=== PATIENT | female | born 1945 | race African-American/Black ===

== ENCOUNTER → 2017-01-13 | Outpatient (CLI) | payer OTHER ==
[~2017-01-13] MED LIST: ACCU-CHEK SMAR1 EACH MC; ACETAMINOPHEN325 M1 PO; ADVAIR HFA 230M12 GM INH; ALLEGRA ALLERGY60 MG PO; ALPRAZOLAM 0.0.25 M1 PO; AMBIEN 5 MG TABL5 M1 PO; AMBIEN CR12.5 MG PO; AMLODIPINE BESY10 MG PO; AMOXICILLIN 50500 M1 PO; ANTABUSE250 M1 PO; APAP650 PO; AZOR 10-40 MG1 EACH PO; BAYER CHEWABLE81 MG PO; BENADRYL25 MG PO; BENICAR40 MG PO; BIOTIN5 MG PO; BREO ELLIPTA 21 EACH IH; BYSTOLIC 5 MG5 M1 PO; CALCIUM 500 +1 EAC5 PO; CAMPRAL 333 MG333 M1 PO; CARDIZEM CD240 MG PO; CARVEDILOL12.5 MG PO; CEFTIN 250 MG250 MG PO; CENTRUM SILVER1 EAC4 PO; CEPHALEXIN 500500 M1 PO; CHLORTHALIDONE25 MG PO; CITRACAL + D C1 EACH PO; CLONIDINE0.1 PO; COLACE100 MG PO; DEMADEX10 MG PO; DILTIAZEM 24HR240 MG PO; DIOVAN160 MG PO; DIPHENHYDRAMINE25 M3 PO; DULERA 100 MCG/13 GM IH; DULERA 100 MCG/13 GM INH; DUONEB 2.5-0.5 M3 ML INH; ECHINACEA HERB380 MG PO; ESTRACE0.5 MG PO; FLECAINIDE ACET50 M1 PO; FLECAINIDE ACET50 M2 PO; FLONASE 0.05%50 MCG NASAL; FUROSEMIDE 20 M20 MG PO; FUROSEMIDE 40 M40 M1 PO; HYDROCODON-ACE1 EAC7 PO; HYDROCODONE-AP1 EAC6 PO; HYDROXYZINE HCL25 M1 PO; IRON325 PO; JANUVIA100 MG PO; KEFLEX500 MG PO; KLOR-CON 10 ER10 MEQ PO; LEVEMIR SUBQ; LEVOTHYROXIN0.175 MG PO; LYRICA 50 MG50 MG PO; LYRICA 75 MG CA75 MG PO; MEDROLDOSEPACK PO; MELOXICAM7.5 MG PO; MERIBIN5 MG PO; METOCLOPRAMIDE 55 M1 PO; METROGEL-VAGINA70 GM; MOBIC15 MG PO; MOBIC7.5 MG PO; MUCINEX TA600 MG/TA2 PO; NEXIUM 40 MG CA40 M1 PO; OXYBUTYNIN 5 MG5 M2 PO; PACERONE 200 M200 M1 PO; PERCOCET 5-3251 EACH PO; PREDNISONE 10 M10 M1; PREDNISONE 10 M10 MG PO; PREDNISONE 5 MG5 M1 PO; PREMPRO 0.3 MG1 EACH PO; PREVACID30 MG PO; PRILOSEC 20 MG20 MG PO; PRILOSEC20 MG PO; PROAIR HFA8.5 GM INH; PROMETHAZINE-C120 ML PO; PROTONIX40 M2 PO; PROVENTIL HFA6.7 G1 INH; RESTORIL15 MG PO; RESTORIL7.5 MG PO; SINGULAIR 10 MG10 M1 PO; SORINE 80 MG TA80 M1 PO; SPIRIVA INH; STOOL SOFTENER100 MG PO; SYMBICORT160 MCG/4. INH; SYMBICORT80 MCG/4.1 INH; SYNTHROID125 MCG PO; TIROSINT150 MCG PO; TRAMADOL 50 MG50 MG PO; TYLENOL325 MG PO; VALACYCLOVIR500 MG PO; VITAMIN D 5050000 I1 PO; VITAMIN D250000 UNIT PO; VITAMIN E1000 UNI3 PO; VITAMINC500 PO; XANAX 0.25 MG0.25 MG PO; XARELTO15 MG PO; ZYRTEC10 M2 PO
--- NOTE | ~2017-01-13 | 2DMMODE ---
[facility] [place] [address] 2 D/M-MODE ECHOCARDIOGRAM Name: PAKO BALL Room #: REG [facility]#: [id number] Admission: 01/13/17 Attend Phys: Berny Goodman MD Discharge: Date of : 41 Date of Service: 01/13/17 1349 Report #: [id number] THIS REPORT FOR: //name// APPROVED REPORT Study performed: 01/13/2017 12:06:04 EXAM: Comprehensive 2D, Doppler, and color-flow Echocardiogram Patient Location: Out-Patient Blood Pressure: 148/60 mmHg HR: 51 bpm Other Information Study Quality: Adequate Indications CHF, Afib, PHTN 2D Dimensions RVDd: 38.87 mm LVEF(%): 68.25 (>50%) IVSd: 11.92 (7-11mm) LVOT Diam: 19.64 (18-24mm) LVDd: 41.28 mm PWd: 9.97 (7-11mm) Ascending Aorta: 27.11 mm LVDs: 25.72 (25-40mm) Aortic Root: 28.55 mm Peguero's LVEF: 68.25 % Volumes Left Atrial Volume (Systole) Single Plane 4CH: 54.45 mL Single Plane 2CH: 62.15 mL LA ESV Index: 36.00 mL/m2 Aortic Valve AoV Peak Geovani.: 1.86 m/s AO Peak Gr.: 13.86 mmHg LV Max P.51 mmHg LV Max: 0.94 m/s AI Vmax: 4.68 m/s AI [place]: 2.78 m/s2 AI PHT: 488.94 ms Mitral Valve E/A Ratio: 2.7 MV Decel. Time: 176.12 ms [facility] [place] [address] 2 D/M-MODE ECHOCARDIOGRAM [facility] Room #: REG [facility]#: [id number] Admission: 01/13/17 Attend Phys: Berny Goodman MD Discharge: Date of : 41 Date of Service: 01/13/17 1349 Report #: [id number] E Max Geovani.: 1.40 m/s MV A Geovani.: 0.51 m/s MV PHT: 51.08 ms Pulmonary Valve PV Peak Geovani.: 0.93 m/s PV Peak Gr.: 3.46 mmHg Pulmonary Vein P Vein S: 32.9 m/s P Vein D: 79.7 m/s P Vein A Dur.: 32.1 m/s PVa Duration: 125 Tricuspid Valve TR Peak Geovani.: 3.40 m/s RAP Estimate: 5.00 mmHg TR Peak Gr.: 46.34 mmHg RVSP: 51.00 mmHg Left Ventricle The left ventricle is normal size. There is normal LV segmental wall motion. Mild septal hypertrophy. Left ventricular systolic function is normal. LVEF is 60-65%. Grade II - pseudonormal filling dynamics. Right Ventricle The right ventricle is normal size. The right ventricular systolic function is normal. Atria Left atrium is mildly dilated. The right atrium size is normal. Aortic Valve Aortic valve is calcified. Mild to moderate aortic regurgitation. There is no aortic valvular stenosis. Mitral Valve The mitral valve is normal in structure. Mild to moderate mitral regurgitation. No evidence of mitral valve stenosis. Tricuspid Valve The tricuspid valve is normal in structure. There is mild to moderate tricuspid regurgitation. The right atrial pressure is estimated at 5 mmHg. There is moderate pulmonary hypertension with an estimated PAP of 51mmHg. Pulmonic Valve The pulmonary valve is normal in structure. Mild pulmonic [address] [address] 2 D/M-MODE ECHOCARDIOGRAM Name: LAURENT BALLMARY Room #: REG CL Faheem#: [id number] Admission: 01/13/17 Attend Phys: Berny Goodman MD Discharge: Date of : 41 Date of Service: 01/13/17 1349 Report #: [id number] regurgitation. Great Vessels The aortic root is normal in size. The ascending aorta is normal in size. IVC is normal in size and collapses >50% with inspiration. Pericardium There is no pericardial effusion. <Conclusion> The left ventricle is normal size. Left ventricular systolic function is normal. The right ventricle is normal size. Left atrium is mildly dilated. Mild to moderate aortic regurgitation. Mild to moderate mitral regurgitation. There is mild to moderate tricuspid regurgitation. The right atrial pressure is estimated at 5 mmHg. There is moderate pulmonary hypertension with an estimated PAP of 51mmHg. <ELECTRONICALLY SIGNED> By: Berny Goodman MD 01/13/17 1349 1349 1349 Berny Goodman MD /INF
== END ==
LOC: CV 01-02 12:53
DX: I50.9 Heart failure, unspecified (principal); I48.91 Unspecified atrial fibrillation; I27.2 Other secondary pulmonary hypertension

== ENCOUNTER → 2017-02-03 | Outpatient (CLI) | payer OTHER | LOC: RAD 13:03 | DX: Z12.31 Encounter for screening mammogram for malignant neoplasm of breast (principal) ==

== ENCOUNTER → 2017-03-27 | Outpatient (CLI) | payer OTHER ==
[~2017-03-27] VITALS: Ht 162.6 cm; Wt 75.3 kg
[2017-03-27 14:29] VITALS: BP 159/62
== END ==
LOC: PAIN 06:46
DX: M47.26 Other spondylosis with radiculopathy, lumbar region (principal); M53.3 Sacrococcygeal disorders, not elsewhere classified; I10 Essential (primary) hypertension; Z87.891 Personal history of nicotine dependence

== ENCOUNTER → 2017-06-13 | Outpatient (CLI) | payer OTHER | LOC: RAD 11:48 | DX: R05 Cough (principal); R06.2 Wheezing ==

== ENCOUNTER 2017-06-14 11:17 | Emergency (ER) | payer OTHER ==
[2017-06-14 11:18] VITALS: BP 171/70
[2017-06-14 11:48] LABS: HEMATOCRIT 40.2 % (37.0-47.0); HEMOGLOBIN 13.9 gm/dL (12.0-15.0); MCH 31.7 pg (26.0-34.0); MCHC 34.7 g/dL (28.0-37.0); MCV 91.3 fL (80.0-100.0); PLATELET COUNT 174 thou/uL (150-400); RDW 13.5 % (10.5-14.5); WBC 5.4 thou/uL (4.0-11.0)
[2017-06-14 11:51] LABS: MANUAL DIFF YES
[2017-06-14 12:01] LABS: CREATININE 1.2 mg/dL (0.6-1.0)
[2017-06-14] MEDS ORDERED: VIRTUSSIN AC L118 ML PO (12:42)
[2017-06-14 13:22] LABS: TOTAL CELL COUNT 100
[2017-06-14 13:23] LABS: ANISOCYTOSIS SLIGHT
== END 2017-06-14 14:10 | disposition home or self-care (01) ==
LOC: ER 11:17
PROVIDERS: Emergency Medicine
DX: T50.995A Adverse effect of other drugs, medicaments and biological substances, initial encounter (principal); J06.9 Acute upper respiratory infection, unspecified; Y92.89 Other specified places as the place of occurrence of the external cause

== ENCOUNTER 2017-12-13 14:30 | Emergency (ER) | payer OTHER ==
[~2017-12-13] VITALS: Ht 160 cm; Wt 77.6 kg
--- NOTE | ~2017-12-13 | EKG ---
[place] [address] [facility] [place] [address] ELECTROCARDIOGRAM REPORT Name: LAURENT BALLMARY Room #: DEP Faheem#: [id number] Admission: 12/13/17 Attend Phys: Discharge: 12/13/17 Date of : 41 Report #: [id number] THIS REPORT FOR: //name// [facility] ED Test Date: 2017-12-13 Test Time: 15:04:58 Pat Name: PAKO BALL Department: Room: Gender: F Fitness Sales Associate: ARIELA : 1945 Requested By: Chetna Puentes Order Number: [id number] MD: Himanshu Arreola Measurements Intervals [place] Rate: 57 P: -16 [place]: 209 QRS: 3 QRSD: 94 T: 54 QT: 443 QTc: 432 Interpretive Statements Sinus rhythm No significant abnormality Compared to ECG 03/13/2016 13:58:47 ST (T wave) deviation no longer present Electronically Signed On 12-14-2017 13:45:29 CDT by Himanshu Arreola [email or web address] <ELECTRONICALLY SIGNED> By: Himanshu Arreola MD, [facility] 12/14/17 1345 1504 1504 Himanshu Arreola MD, FAC /EPI
[~2017-12-13 14:30] MED LIST changes: +VIRTUSSIN AC L118 ML PO
[2017-12-13] MEDS ORDERED: DEXILANT60 MG PO (15:05)
[2017-12-13] MEDS ORDERED: COLACE100 MG PO (15:05)
[2017-12-13] MEDS ORDERED: ESTRADIOL 1 MG T1 M1 PO (15:06)
[2017-12-13] MEDS ORDERED: LYRICA 50 MG50 MG PO (15:07)
[2017-12-13] MEDS ORDERED: NORCO 5-325 TA1 EACH PO (15:07)
[2017-12-13] MEDS ORDERED: VITAMINC500 PO (15:08)
[2017-12-13 16:06] LABS: ABSOLUTE NEUTROPHILS 3.3 thou/uL (1.4-8.2); BASOPHILS 0.7 % (0.0-2.0); EOSINOPHILS 0.7 % (0.0-3.0); HEMATOCRIT 37.2 % (37.0-47.0); HEMOGLOBIN 12.3 gm/dL (12.0-15.0); LYMPHOCYTES 26.8 % (24.0-44.0); MCH 28.8 pg (26.0-34.0); MCV 87.4 fL (80.0-100.0); MONOCYTES 10.8 % (1.0-8.0); PLATELET COUNT 212 thou/uL (150-400); RBC 4.26 mil/uL (4.20-5.00); RDW 14.8 % (10.5-14.5); WBC 5.4 thou/uL (4.0-11.0)
[2017-12-13 16:16] LABS: ANION GAP 9 mmol/L (7-16); BUN 21 mg/dL (7-18); CALCIUM 8.9 mg/dL (8.5-10.1); CHLORIDE 104 mmol/L (98-107); CO2 26 mmol/L (21-32); CREATININE 1.1 mg/dL (0.6-1.0); GLUCOSE 125 mg/dL (74-106); POTASSIUM 3.9 mmol/L (3.5-5.1); SODIUM 139 mmol/L (136-145)
[2017-12-13 16:25] LABS: TROPONIN-I < 0.04 ng/mL (<0.06)
[2017-12-13 16:52] LABS: PLATELET ESTIMATE NORMAL
[2017-12-13] MEDS ORDERED: AZITHROMYCIN 2250 MG PO ×2 (17:11→17:31)
[2017-12-13] MEDS ORDERED: TESSALON PERLE100 MG PO (17:11)
[2017-12-13 17:43] VITALS: BP 166/64
[2018-02-20] MEDS ORDERED: TRAMADOL 50 MG50 MG PO (11:34)
[2018-03-02] MEDS ORDERED: ALBUTEROL2.5 MG/31 INH (10:19)
[2018-03-02] MEDS ORDERED: LYRICA 75 MG CA75 MG PO (10:25)
[2018-03-02] MEDS ORDERED: AZELASTINE137 MCG/0. NASAL (10:28)
[2018-03-02] MEDS ORDERED: SINGULAIR 10 MG10 M1 PO (10:28)
[2018-03-02] MEDS ORDERED: VOLTAREN GEL 1100 G2 TOP (10:30)
[2018-03-02] MEDS ORDERED: JANUVIA 50 MG T50 M1 (10:31)
[2018-05-06] MEDS ORDERED: SYNTHROID112 MC1 PO (13:34)
== END 2017-12-13 17:44 | disposition home or self-care (01) ==
LOC: ER 14:30
PROVIDERS: Physician Assistant
DX: J18.9 Pneumonia, unspecified organism (principal); J06.9 Acute upper respiratory infection, unspecified; R04.0 Epistaxis; I10 Essential (primary) hypertension; J45.909 Unspecified asthma, uncomplicated; I48.91 Unspecified atrial fibrillation; Z88.2 Allergy status to sulfonamides; Z88.1 Allergy status to other antibiotic agents; Z88.5 Allergy status to narcotic agent; Z88.6 Allergy status to analgesic agent

== ENCOUNTER → 2018-01-27 | Outpatient (CLI) | payer OTHER ==
[~2018-01-27] MED LIST changes: +AZITHROMYCIN 2250 MG PO; +DEXILANT60 MG PO; +ESTRADIOL 1 MG T1 M1 PO; +NORCO 5-325 TA1 EACH PO; +TESSALON PERLE100 MG PO
== END ==
LOC: RAD 15:04
DX: Z12.31 Encounter for screening mammogram for malignant neoplasm of breast (principal)

== ENCOUNTER → 2018-02-03 | Outpatient (CLI) | payer OTHER | LOC: RAD 08:37 | DX: R92.8 Other abnormal and inconclusive findings on diagnostic imaging of breast (principal) ==

== ENCOUNTER → 2018-03-04 | Outpatient (CLI) | payer OTHER ==
[~2018-03-04] VITALS: Ht 162.6 cm; Wt 77.1 kg
[~2018-03-04] MED LIST changes: +ALBUTEROL2.5 MG/31 INH; +AZELASTINE137 MCG/0. NASAL; +JANUVIA 50 MG T50 M1; +VOLTAREN GEL 1100 G2 TOP
--- NOTE | ~2018-03-04 | P ---
[facility] [place] [address] PROCEDURE REPORT Name: PAKO BALL Room #: REG [id number] Admission: 03/04/18 Attend Phys: Ata Starks Discharge: Date of : 41 Report #: [id number] THIS REPORT FOR: //name// CC: Ata Lomeli MD DATE OF SERVICE: 03/04/2018 PROCEDURE PERFORMED: Upper endoscopy with biopsies and esophageal dilation. HISTORY OF PRESENT ILLNESS: The patient is a 72-year-old female with gastroesophageal reflux disease, intermittent heartburn symptoms, currently taking Dexilant once a day, also complains of dysphagia. DESCRIPTION OF PROCEDURE: The risks and benefits of the procedure were explained to the patient, those risks including but not limited to bleeding, perforation, the risk of sedation. She understood these risks and gave informed consent. Sedation was given using propofol per anesthesia. Next, using the standard Olympus upper endoscope, the scope was placed in the patient's mouth and advanced under direct vision through the esophagus, stomach and into the second portion of the duodenum. The upper and mid esophagus were normal. The GE junction was normal. No evidence of stricture or esophagitis. Overall, the gastric mucosa was normal in the fundus and upper body. There was a mild gastritis noted in the gastric antrum. Biopsies were obtained to rule out H. pylori. The pylorus was normal and patent. The duodenal bulb, first and second portion of the duodenum were all normal. Scope was then brought back up into the patient's stomach and a Savary guidewire was inserted through the scope, leaving the guidewire in place as the scope was then withdrawn. Next, a 48-Albanian Savary dilation of the esophagus was performed without difficulty. The wire and dilator were removed. The scope was reintroduced into the patient's stomach. There was no evidence of mucosal tear after dilation. The scope was then withdrawn and the procedure terminated. The patient tolerated the procedure well. IMPRESSION: 1. Mild gastritis. 2. Otherwise, normal upper endoscopy. RECOMMENDATIONS: 1. Await biopsy results. 2. Continue PPI therapy. Consider b.i.d. therapy. 3. Observe the patient post-dilation. [facility] [address] [place] [address] PROCEDURE REPORT Name: QUINNPAKO Room #: REG [facility] [id number] Admission: 03/04/18 Attend Phys: Ata Starks Discharge: Date of : 41 Report #: [id number] Thank you for allowing me to participate in her care. By: 1127 [id number] Ata Wilson MD /nt
--- NOTE | ~2018-03-04 | PATH ---
[facility] [address] [place] [address] PATHOLOGY RPT PROCEDURE Name: PAKO BALL Room #: REG [facility] MGina.#: [id number] Admission: 03/04/18 Date of : 41 Discharge: Report #: [id number] Path Case #: [id number] [facility] Accession Number: [id number] . 01 Material submitted: . BX OF GASTRITIS . 02 Diagnosis: Gastric mucosa, gastritis, endoscopic biopsy: - Mild reactive gastropathy associated with focal intestinal metaplasia. - Negative for atrophy or dysplasia. - Negative for Helicobacter pylori (properly controlled immunohistochemical stain performed). (IUV:mgr; 03/05/18) QRQ/03/05/2018 . 02 Electronically signed: . Obdulia Marr MD, Pathologist NPI- [id number] . 01 Gross description: . Received in formalin labeled "Birdyelene Rosie, BX gastritis" and consists of 2 soft perkins tissue fragments each averaging 0.3 cm. They are entirely submitted as A1. (GARY; 03/04/2018) JBR/JBR . 02 Pathologist provided ICD-10: K31.9 . 02 CPT . 521611, O34902 Performed at: [address], [place] [id number] MD Hany Calle MD Phone: [phone] Performed at: [address] [id number] MD Obdulia Marr MD Phone: [phone]
== END | disposition home or self-care (01) ==
LOC: GI 09:30
DX: K31.9 Disease of stomach and duodenum, unspecified (principal); I11.0 Hypertensive heart disease with heart failure; I50.9 Heart failure, unspecified; E11.9 Type 2 diabetes mellitus without complications; J45.909 Unspecified asthma, uncomplicated; I48.91 Unspecified atrial fibrillation; K21.9 Gastro-esophageal reflux disease without esophagitis; M19.90 Unspecified osteoarthritis, unspecified site; Z87.19 Personal history of other diseases of the digestive system; Z79.899 Other long term (current) drug therapy; Z90.49 Acquired absence of other specified parts of digestive tract; Z90.711 Acquired absence of uterus with remaining cervical stump; Z88.2 Allergy status to sulfonamides; Z88.8 Allergy status to other drugs, medicaments and biological substances; Z87.09 Personal history of other diseases of the respiratory system
CPT/HCPCS: 62110; 62900

== ENCOUNTER → 2018-03-19 | Outpatient (CLI) | payer OTHER ==
--- NOTE | ~2018-03-19 | 2DMMODE ---
[facility] [place] [address] 2 D/M-MODE ECHOCARDIOGRAM Name: LAURENT BALLMARY Room #: REG [facility]#: [id number] Admission: 03/19/18 Attend Phys: Berny Goodman MD Discharge: Date of : 41 Date of Service: 03/19/18 1542 Report #: [id number] THIS REPORT FOR: //name// APPROVED REPORT Study performed: 03/19/2018 14:47:43 EXAM: Comprehensive 2D, Doppler, and color-flow Echocardiogram Patient Location: Out-Patient Status: routine BSA: 1.84 HR: 57 bpm BP: 166/71 mmHg Rhythm: NSR Other Information Study Quality: Adequate Indications CAD. 2D Dimensions RVDd: 35.75 mm LVEF(%): 73.51 (>50%) IVSd: 13.17 (7-11mm) LVOT Diam: 20.17 (18-24mm) LVDd: 36.78 mm PWd: 11.58 (7-11mm) Ascending Ao: 30.22 (22-36mm) LVDs: 21.44 (25-40mm) Aortic Root: 22.52 mm Peguero's LVEF: 73.51 % Volumes Left Atrial Volume (Systole) Single Plane 4CH: 40.69 mL Single Plane 2CH: 38.49 mL Aortic Valve AoV Peak Geovani.: 2.06 m/s AO Peak Gr.: 17.03 mmHg LVOT Max P.46 mmHg AO Mean Gr.: 9.63 mmHg AO V2 Mean: 1.50 m/s LVOT Max V: 1.17 m/s AO V2 VTI: 49.71 cm OLIVER Vmax: 1.81 cm2 AI Vmax: 4.10 m/s AI [place]: 2.77 m/s2 AI PHT: 429.84 ms [facility] [place] [address] 2 D/M-MODE ECHOCARDIOGRAM Name: PAKO BALL Room #: REG [facility]#: [id number] Admission: 03/19/18 Attend Phys: Berny Goodman MD Discharge: Date of : 41 Date of Service: 03/19/18 1542 Report #: [id number] Mitral Valve E/A Ratio: 2.6 MV Decel. Time: 140.39 ms MV E Max Geovani.: 1.46 m/s MV A Geovani.: 0.57 m/s MV PHT: 40.71 ms IVRT: 55.36 ms Pulmonary Valve PV Peak Geovani.: 2.35 m/s PV Peak Gr.: 27.70 mmHg Pulmonary Vein P Vein S: 0.39 m/s P Vein A: 0.34 m/s P Vein D: 0.87 m/s P Vein A Dur.: 152.2 msec P Vein S/D Ratio: 0.45 Tricuspid Valve TR Peak Geovani.: 3.44 m/s RAP Estimate: 5.00 mmHg TR Peak Gr.: 47.41 mmHg PA Pressure: 52.00 mmHg Left Ventricle The left ventricle is normal size. There is normal LV segmental wall motion. Mild concentric left ventricular hypertrophy. The left ventricular systolic function is normal. LVEF is 60-65%. Moderate diastolic dysfunction is present (pseudonormal filling). Right Ventricle The right ventricle is normal size. The right ventricular systolic function is normal. Atria Left atrium is mildly dilated. The right atrium size is normal. Aortic Valve The Aortic valve is sclerotic. Mild to moderate aortic regurgitation. There is normal aortic valve excursion. Mitral Valve The mitral valve is normal in structure. Mild to moderate mitral regurgitation. Tricuspid Valve The tricuspid valve is normal in structure. Mild to moderate [facility] [address] [place] [address] 2 D/M-MODE ECHOCARDIOGRAM Name: PAKO BALL Room #: REG CL [facility]#: [id number] Admission: 03/19/18 Attend Phys: Berny Goodman MD Discharge: Date of : 41 Date of Service: 03/19/18 1542 Report #: [id number] tricuspid regurgitation. Estimated PAP is 50-55mmHg. Pulmonic Valve The pulmonary valve is normal in structure. Trace pulmonic regurgitation. Great Vessels The aortic root is normal in size. The ascending aorta is normal in size. IVC is normal in size and collapses >50% with inspiration. Pericardium There is no pericardial effusion. <Conclusion> The left ventricle is normal size. Mild concentric left ventricular hypertrophy. The left ventricular systolic function is normal. Moderate diastolic dysfunction is present (pseudonormal filling). The right ventricle is normal size. Left atrium is mildly dilated. The Aortic valve is sclerotic. Mild to moderate aortic regurgitation. Mild to moderate mitral regurgitation. Mild to moderate tricuspid regurgitation. Estimated PAP is 50-55mmHg. <ELECTRONICALLY SIGNED> By: Berny Goodman MD 03/19/18 [phone] Berny Goodman MD /INF
== END ==
LOC: CV 08:15
DX: I08.3 Combined rheumatic disorders of mitral, aortic and tricuspid valves (principal); I25.10 Atherosclerotic heart disease of native coronary artery without angina pectoris; I51.7 Cardiomegaly; I48.91 Unspecified atrial fibrillation

== ENCOUNTER → 2018-05-06 | Outpatient (CLI) | payer OTHER ==
[~2018-05-06] VITALS: Ht 162.6 cm; Wt 81.7 kg
[~2018-05-06] MED LIST changes: +SYNTHROID112 MC1 PO
--- NOTE | ~2018-05-06 | HPC ---
[facility] [place] [address] PAIN MANAGEMENT CONSULTATION Name: PAKO BALL Room #: REG YANELI RosenLaura#: [id number] Admission: 05/06/18 Attend Phys: Yobany Dennis DO Discharge: Date of : 41 Report #: [id number] THIS REPORT FOR: //name// CC: Harrison Viramontes MD DATE OF SERVICE: 05/06/2018 CHIEF COMPLAINT: Low back pain, left lower extremity pain and paresthesias. HISTORY OF PRESENT ILLNESS: As you know, the patient is a 72-year-old female who suffers from chronic lumbar radiculopathy and coccydynia. She returns to our clinic today reporting a pain score of about 10/10. She states pain begins in the low back, radiates down the left leg all the way to the foot. She returns requesting an epidural injection under fluoroscopic guidance. We have reviewed with the patient recent treatment options. Most effective of the treatments was epidural injection. She has undergone 2 other caudal epidural injections per the request of Dr. Viramontes, though these provided no significant benefit. The epidural injection nearly a year and a half ago provided almost 1 year of improvement. She returns to undergo this injection today. ALLERGIES: MEPERIDINE, SULFA, MORPHINE, BUMETANIDE, CEPHALEXIN, TETRACYCLINE, DOXYCYCLINE, ADHESIVE TAPE, FENTANYL, CLARITHROMYCIN, AMOXICILLIN, DULOXETINE. CURRENT MEDICATIONS: See extensive list in chart. SOCIAL HISTORY: The patient reports she is a nonsmoker. Denies IV or illicit drug use. Denies chronic alcohol use. She is unaccompanied today. IMAGING: There is no new imaging available. PQRS: The patient has known osteoarthritis of the left lower extremity and right lower extremity. She is not suffering from rheumatoid arthritis. She places current pain score 10/10. She is not a fall risk, has not had a fall in the last 3 months. She is on a blood thinner in the form of Xarelto, but discontinued the medication 3 days prior to today's procedure. She is treated for hypertension. She is on chronic opioids, but is a low risk for opioid dependency. PHYSICAL EXAMINATION: VITAL SIGNS: Blood pressure 152/56, pulse is 85, respiratory rate 20 and unlabored. The patient is 96% on room air, height 5 feet 4 inches tall, weight 180 pounds, BMI calculated 30.9. GENERAL: Well-developed, well-nourished, well-hydrated 72[place] [address] PAIN MANAGEMENT CONSULTATION Name: PAKO BALL Room #: REG CLI [facility]#: [id number] Admission: 05/06/18 Attend Phys: Yobany Dennis DO Discharge: Date of : 41 Report #: [id number] appearing her stated age. She is placing current pain score at 10/10. HEENT: Normocephalic, atraumatic. Pupils equal, round, reactive to light. NEUROLOGIC: Speech is normal. The patient is deemed a good historian. EXTREMITIES: Show no clubbing, no cyanosis, no edema. MUSCULOSKELETAL: Seated straight leg raising positive on the left. Supine straight leg raising positive on the left. JOE test negative. Modified Gaenslen positive for low back pain. Ankle clonus negative. Babinski is negative. Gait is antalgic favoring left lower extremity over right. ASSESSMENT: 1. Symptomatic lumbar radiculopathy. 2. Displacement of lumbar intervertebral disk with radiculopathy. 3. Lumbosacral spondylosis with radiculopathy. 4. Chronic coccydynia. 5. Chronic intractable pain. PLAN: 1. The patient returns today in followup visit indicating excellent benefit with the epidural injection provided 07/08/2016 with 80%-100% improvement in overall pain lasting for nearly a year. Her return visit on 03/27/2017 and again on 02/20/2018 to undergo Caudal epidural injections were met with minimal improvement in symptoms. She has returned requesting an epidural injection similar to the injection she had in 06/2016. She has been advised risks and benefits of this procedure, states understood and wished to proceed. 2. No medication changes were made at today's visit. The patient needs to continue current medical therapy as previously prescribed. 3. We will see the patient back in followup visit on an as-needed basis for the next in a series of epidural injections. We will keep you apprised of her response to treatment. PROCEDURE NOTE DESCRIPTION OF PROCEDURE: L4-L5 left paramedian epidural steroid injection under fluoroscopic guidance. After obtaining written consent, the patient was taken back to fluoroscopy suite, placed in prone position with pillow under abdomen to decrease lumbar lordosis. Skin overlying lumbosacral area then prepped and draped in aseptic fashion. The L4-L5 vertebral interspace was identified by AP fluoroscopy. Skin and subcutaneous tissue overlying target site of injection was anesthetized with 3 mL of 1% lidocaine. A 20-gauge 3-1/2 inch Tuohy needle advanced under fluoroscopic guidance towards the epidural space using left paramedian approach. Epidural space identified using loss of resistance to air technique. After negative aspiration for heme or cerebrospinal fluid, 1 mL of Omnipaque injected. A lumbar epidurogram was [address] [address] PAIN MANAGEMENT CONSULTATION Name: PAKO BALL Room #: REG [facility]#: [id number] Admission: 05/06/18 Attend Phys: Yobany Dennis DO Discharge: Date of : 41 Report #: [id number] confirmed using both AP and lateral fluoroscopy. After negative aspiration for heme or cerebrospinal fluid, 5 mL of a solution containing 2 mL 40 mg per mL, 80 mg total triamcinolone, 3 mL of lidocaine 1% injected slowly. Needle retracted custodial, flushed with 1 mL of 1% lidocaine and removed. Sterile bandage placed over injection site. No new motor deficits present in the lower extremity following the procedure. The patient tolerated procedure well, carefully escorted to recovery room in a stable condition. No apparent complication. After meeting discharge criteria, the patient discharged home. <ELECTRONICALLY SIGNED> By: Yobany Dennis DO 05/12/18 1441 1711 0704 Yobany Dennis DO /nt
[2018-05-06 13:27] VITALS: BP 152/56
== END | disposition home or self-care (01) ==
LOC: PAIN 07:13
DX: M51.16 Intervertebral disc disorders with radiculopathy, lumbar region (principal); M47.27 Other spondylosis with radiculopathy, lumbosacral region; G89.29 Other chronic pain; M53.3 Sacrococcygeal disorders, not elsewhere classified; I11.0 Hypertensive heart disease with heart failure; I48.91 Unspecified atrial fibrillation; I50.9 Heart failure, unspecified; Z88.2 Allergy status to sulfonamides; Z88.8 Allergy status to other drugs, medicaments and biological substances; Z98.890 Other specified postprocedural states; Z79.899 Other long term (current) drug therapy; Z79.01 Long term (current) use of anticoagulants

== ENCOUNTER 2018-08-21 11:53 | Emergency (ER) | payer OTHER ==
[~2018-08-21] VITALS: Ht 160 cm; Wt 80.3 kg
--- NOTE | ~2018-08-21 | EKG ---
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
[2018-08-21] MEDS ORDERED: PULMICORT0.5 MG/22 INH (12:58)
[2018-08-21] MEDS ORDERED: BIOTIN10 MG PO (12:58)
[2018-08-21] MEDS ORDERED: CALCITONIN-SAL3.7 ML NASAL (13:00)
[2018-08-21] MEDS ORDERED: TUMS PO (13:00)
[2018-08-21] MEDS ORDERED: CALCIUM-VITAMI1 EACH PO (13:01)
[2018-08-21] MEDS ORDERED: IRON325 PO (13:02)
[2018-08-21] MEDS ORDERED: ESZOPICLONE3 MG (13:02)
[2018-08-21] MEDS ORDERED: MUCINEX600 MG PO (13:03)
[2018-08-21] MEDS ORDERED: OXYBUTYNIN 5 MG5 M2 PO (13:04)
[2018-08-21 13:40] LABS: ABSOLUTE NEUTROPHILS 3.4 thou/uL (1.4-8.2); BASOPHILS 0.6 % (0.0-2.0); EOSINOPHILS 1.3 % (0.0-3.0); HEMOGLOBIN 13.5 gm/dL (12.0-15.0); LYMPHOCYTES 29.1 % (24.0-44.0); MCH 29.9 pg (26.0-34.0); MCHC 32.9 g/dL (28.0-37.0); MCV 90.8 fL (80.0-100.0); MONOCYTES 7.8 % (1.0-8.0); PLATELET COUNT 149 thou/uL (150-400); POLYS 61.2 % (36.0-66.0); RBC 4.51 mil/uL (4.20-5.00); RDW 13.2 % (10.5-14.5); WBC 5.5 thou/uL (4.0-11.0)
[2018-08-21 13:47] LABS: ANION GAP 6 mmol/L (7-16); BUN 15 mg/dL (7-18); CALCIUM 10.3 mg/dL (8.5-10.1); CHLORIDE 106 mmol/L (98-107); CO2 31 mmol/L (21-32); CREATININE 1.2 mg/dL (0.6-1.0); GLUCOSE 118 mg/dL (74-106); POTASSIUM 3.5 mmol/L (3.5-5.1); SODIUM 143 mmol/L (136-145)
[2018-08-21 13:56] LABS: TROPONIN-I <0.06 ng/mL (<0.06)
[2018-08-21 15:02] VITALS: BP 165/73
== END 2018-08-21 22:52 | disposition home or self-care (01) ==
LOC: ER 11:53
PROVIDERS: Physician Assistant
DX: R60.0 Localized edema (principal); L81.9 Disorder of pigmentation, unspecified; J45.909 Unspecified asthma, uncomplicated; I48.91 Unspecified atrial fibrillation; K21.9 Gastro-esophageal reflux disease without esophagitis; E05.00 Thyrotoxicosis with diffuse goiter without thyrotoxic crisis or storm; M19.90 Unspecified osteoarthritis, unspecified site; E11.40 Type 2 diabetes mellitus with diabetic neuropathy, unspecified; I11.0 Hypertensive heart disease with heart failure; I50.9 Heart failure, unspecified; Z90.710 Acquired absence of both cervix and uterus; Z79.899 Other long term (current) drug therapy; Z88.1 Allergy status to other antibiotic agents; Z88.2 Allergy status to sulfonamides; Z88.5 Allergy status to narcotic agent; Z88.8 Allergy status to other drugs, medicaments and biological substances

== ENCOUNTER → 2018-12-02 | Outpatient (CLI) | payer OTHER ==
[~2018-12-02] MED LIST changes: +BIOTIN10 MG PO; +CALCITONIN-SAL3.7 ML NASAL; +CALCIUM-VITAMI1 EACH PO; +ESZOPICLONE3 MG; +MUCINEX600 MG PO; +PULMICORT0.5 MG/22 INH; +TUMS PO
== END ==
LOC: RAD 12:34
DX: J84.9 Interstitial pulmonary disease, unspecified (principal)

== ENCOUNTER → 2019-02-26 | Outpatient (CLI) | payer OTHER | LOC: RAD 01:07 | DX: Z12.31 Encounter for screening mammogram for malignant neoplasm of breast (principal) ==

== ENCOUNTER → 2019-03-25 | Outpatient (CLI) | payer OTHER | LOC: MRI 10:48 | DX: M25.551 Pain in right hip (principal); M25.552 Pain in left hip; G89.29 Other chronic pain; Z74.09 Other reduced mobility ==

== ENCOUNTER → 2019-04-19 | Outpatient (CLI) | payer OTHER | LOC: NUC 11:49 | DX: I48.91 Unspecified atrial fibrillation (principal); I10 Essential (primary) hypertension; E11.9 Type 2 diabetes mellitus without complications; Z88.1 Allergy status to other antibiotic agents; Z88.8 Allergy status to other drugs, medicaments and biological substances ==

== ENCOUNTER → 2019-04-28 | Outpatient (CLI) | payer OTHER | LOC: RAD 11:51 | DX: J98.4 Other disorders of lung (principal); I51.7 Cardiomegaly; Z88.8 Allergy status to other drugs, medicaments and biological substances; Z88.2 Allergy status to sulfonamides; Z90.49 Acquired absence of other specified parts of digestive tract ==

== ENCOUNTER → 2019-08-19 | Outpatient (CLI) | payer OTHER ==
--- NOTE | 2019-08-19 12:56 | 2DMMODE ---
[facility] [address] [place] [address] 2 D/M-MODE ECHOCARDIOGRAM Name: LAURENT BALLMARY Room #: REG [facility]#: [id number] Admission: 08/19/19 Attend Phys: Berny Goodman MD Discharge: Date of : 41 Report #: [id number] THIS REPORT FOR: //name// ADDENDUM APPROVED REPORT Study performed: 08/19/2019 11:02:09 EXAM: Comprehensive 2D, Doppler, and color-flow Echocardiogram Patient Location: Out-Patient Status: routine BSA: 1.82 HR: 66 bpm BP: 144/64 mmHg Other Information Study Quality: Adequate Indications Atrial Fibrillation PAF 2D Dimensions RVDd: 36.84 mm IVSd: 11.83 (7-11mm) LVOT Diam: 19.26 (18-24mm) LVDd: 38.26 mm PWd: 11.51 (7-11mm) Ascending Ao: 29.74 (22-36mm) LVDs: 22.88 (25-40mm) Aortic Root: 26.55 mm IVC: 16.00 mm Volumes Left Atrial Volume (Systole) Single Plane 4CH: 79.09 mL Single Plane 2CH: 42.22 mL LA ESV Index: 34.00 mL/m2 Aortic Valve LVOT Max P.34 mmHg LVOT Max V: 1.16 m/s AI Vmax: 4.50 m/s AI [place]: 3.31 m/s2 AI PHT: 395.01 ms Mitral Valve E/A Ratio: 3.3 MV Decel. Time: 147.19 ms [facility] [address] [place] [address] 2 D/M-MODE ECHOCARDIOGRAM Name: QUINNPAKO Room #: REG CL [facility]#: [id number] Admission: 08/19/19 Attend Phys: Berny Goodman MD Discharge: Date of : 41 Report #: [id number] MV E Max Geovani.: 1.44 m/s MV A Geovani.: 0.44 m/s MV PHT: 42.68 ms IVRT: 23.07 ms Pulmonary Valve PV Peak Geovani.: 1.12 m/s PV Peak Gr.: 4.98 mmHg Pulmonary Vein P Vein S: 0.45 m/s P Vein A: 0.32 m/s P Vein D: 0.98 m/s P Vein A Dur.: 93.4 msec P Vein S/D Ratio: 0.46 Tricuspid Valve TR Peak Geovani.: 3.78 m/s RAP Estimate: 5.00 mmHg TR Peak Gr.: 57.27 mmHg PA Pressure: 62.00 mmHg Left Ventricle The left ventricle is normal size. Mild concentric left ventricular hypertrophy. The left ventricular systolic function is normal. The left ventricular ejection fraction is within the normal range. LVEF is 60-65%. Grade III - reversible restrictive diastolic dysfunction. Right Ventricle The right ventricle is normal size. The right ventricular systolic function is normal. Atria Left atrium is mildly dilated. The right atrium size is normal. Aortic Valve The Aortic valve is sclerotic. Mild to moderate aortic regurgitation. There is no aortic valvular stenosis. Mitral Valve There is mild mitral annular calcification. Mitral valve leaflets are thickened. Mild to moderate mitral regurgitation. No evidence of mitral valve stenosis. Tricuspid Valve The tricuspid valve is normal in structure. Mild to moderate tricuspid regurgitation. Estimated PAP is 62mmHg. [facility] [place] [address] 2 D/M-MODE ECHOCARDIOGRAM Name: LAURENT BALLCLEMENTINAVANESSA Room #: REG [facility]#: [id number] Admission: 08/19/19 Attend Phys: Berny Goodman MD Discharge: Date of : 41 Report #: [id number] Pulmonic Valve The pulmonary valve is normal in structure. Mild pulmonic regurgitation. Great Vessels The aortic root is normal in size. The ascending aorta is normal in size. IVC is normal in size and collapses >50% with inspiration. Pericardium There is no pericardial effusion. <Conclusion> The left ventricle is normal size. Mild concentric left ventricular hypertrophy. The left ventricular systolic function is normal. The right ventricle is normal size. Left atrium is mildly dilated. The Aortic valve is sclerotic. Mild to moderate aortic regurgitation. Mild to moderate mitral regurgitation. Mild to moderate tricuspid regurgitation. Estimated PAP is 62mmHg. <ELECTRONICALLY SIGNED> By: Berny Goodman MD 08/19/19 1256 1256 1256 Berny Goodman MD /INF
== END ==
LOC: CV 10:18
DX: I08.8 Other rheumatic multiple valve diseases (principal); I48.0 Paroxysmal atrial fibrillation; Z88.8 Allergy status to other drugs, medicaments and biological substances; Z88.2 Allergy status to sulfonamides; Z88.0 Allergy status to penicillin

== ENCOUNTER → 2020-02-17 | Outpatient (CLI) | payer OTHER | LOC: SJCVC 13:00 | DX: R94.31 Abnormal electrocardiogram [ECG] [EKG] (principal); I45.10 Unspecified right bundle-branch block; I50.32 Chronic diastolic (congestive) heart failure; I11.0 Hypertensive heart disease with heart failure; I48.0 Paroxysmal atrial fibrillation; E78.00 Pure hypercholesterolemia, unspecified ==

== ENCOUNTER → 2020-02-22 | Outpatient (CLI) | payer OTHER | LOC: BC 10:59 | DX: Z12.31 Encounter for screening mammogram for malignant neoplasm of breast (principal) ==

== ENCOUNTER → 2020-05-10 | Outpatient (CLI) | payer OTHER | LOC: SJCVC 14:19 | PROVIDERS: ATTEND Internal Medicine Cardiovascular Disease | DX: I45.10 Unspecified right bundle-branch block (principal); R60.0 Localized edema; I13.0 Hypertensive heart and chronic kidney disease with heart failure and stage 1 through stage 4 chronic kidney disease, or unspecified chronic kidney disease; N18.3 Chronic kidney disease, stage 3 (moderate); I50.32 Chronic diastolic (congestive) heart failure; I48.0 Paroxysmal atrial fibrillation; I27.20 Pulmonary hypertension, unspecified; J45.909 Unspecified asthma, uncomplicated; M19.90 Unspecified osteoarthritis, unspecified site; Z79.4 Long term (current) use of insulin; Z79.01 Long term (current) use of anticoagulants; Z79.899 Other long term (current) drug therapy; E03.9 Hypothyroidism, unspecified ==

== ENCOUNTER → 2020-05-25 | Outpatient (CLI) | payer OTHER | LOC: BC 13:26 | PROVIDERS: ATTEND Internal Medicine | DX: R92.8 Other abnormal and inconclusive findings on diagnostic imaging of breast (principal) ==

== ENCOUNTER → 2020-08-22 | Outpatient (CLI) | payer OTHER | LOC: CAT 12:57 | PROVIDERS: ATTEND Internal Medicine Cardiovascular Disease | DX: Z13.6 Encounter for screening for cardiovascular disorders (principal); I25.10 Atherosclerotic heart disease of native coronary artery without angina pectoris; E78.00 Pure hypercholesterolemia, unspecified ==

== ENCOUNTER → 2020-09-27 | Outpatient (CLI) | payer OTHER | LOC: SJCVC 14:33 | PROVIDERS: ATTEND Internal Medicine Cardiovascular Disease | DX: I13.0 Hypertensive heart and chronic kidney disease with heart failure and stage 1 through stage 4 chronic kidney disease, or unspecified chronic kidney disease (principal); I50.32 Chronic diastolic (congestive) heart failure; N18.30 Chronic kidney disease, stage 3 unspecified; I48.0 Paroxysmal atrial fibrillation; I27.20 Pulmonary hypertension, unspecified; R60.9 Edema, unspecified; Z79.899 Other long term (current) drug therapy ==

== ENCOUNTER → 2021-01-01 | Outpatient (CLI) | payer OTHER | LOC: RAD 10:52 | PROVIDERS: ATTEND Internal Medicine | DX: M43.17 Spondylolisthesis, lumbosacral region (principal); M47.816 Spondylosis without myelopathy or radiculopathy, lumbar region; M48.07 Spinal stenosis, lumbosacral region; M16.11 Unilateral primary osteoarthritis, right hip ==

== ENCOUNTER → 2021-01-31 | Outpatient (CLI) | payer OTHER | LOC: SJCVC 14:02 | PROVIDERS: ATTEND Internal Medicine Cardiovascular Disease | DX: R00.1 Bradycardia, unspecified (principal); I45.10 Unspecified right bundle-branch block; I48.0 Paroxysmal atrial fibrillation; I13.0 Hypertensive heart and chronic kidney disease with heart failure and stage 1 through stage 4 chronic kidney disease, or unspecified chronic kidney disease; N18.9 Chronic kidney disease, unspecified; I50.32 Chronic diastolic (congestive) heart failure; J45.909 Unspecified asthma, uncomplicated; E03.9 Hypothyroidism, unspecified; M19.90 Unspecified osteoarthritis, unspecified site; Z79.899 Other long term (current) drug therapy; Z86.711 Personal history of pulmonary embolism; Z72.89 Other problems related to lifestyle; Z88.1 Allergy status to other antibiotic agents; Z88.8 Allergy status to other drugs, medicaments and biological substances; Z88.5 Allergy status to narcotic agent; Z88.2 Allergy status to sulfonamides ==

== ENCOUNTER → 2021-02-06 | Outpatient (CLI) | payer OTHER | LOC: RAD 13:58 | PROVIDERS: ATTEND Obstetrics & Gynecology | DX: Z12.31 Encounter for screening mammogram for malignant neoplasm of breast (principal) ==

== ENCOUNTER → 2021-02-12 | Outpatient (CLI) | payer OTHER | LOC: MRI 09:21 | DX: S76.012A Strain of muscle, fascia and tendon of left hip, initial encounter (principal); M76.02 Gluteal tendinitis, left hip; M48.061 Spinal stenosis, lumbar region without neurogenic claudication; M76.891 Other specified enthesopathies of right lower limb, excluding foot; M16.0 Bilateral primary osteoarthritis of hip; X58.XXXA Exposure to other specified factors, initial encounter; Y93.89 Activity, other specified; Y92.89 Other specified places as the place of occurrence of the external cause; Y99.8 Other external cause status ==

== ENCOUNTER → 2021-02-15 | Outpatient (CLI) | payer OTHER | LOC: MRI 11:31 | DX: M51.36 Other intervertebral disc degeneration, lumbar region (principal); M48.062 Spinal stenosis, lumbar region with neurogenic claudication; M25.551 Pain in right hip; M25.552 Pain in left hip; M47.816 Spondylosis without myelopathy or radiculopathy, lumbar region ==

== ENCOUNTER → 2021-03-20 | Outpatient (CLI) | payer OTHER | LOC: RAD 16:16 | PROVIDERS: ATTEND Nurse Practitioner | DX: M47.816 Spondylosis without myelopathy or radiculopathy, lumbar region (principal); M43.06 Spondylolysis, lumbar region ==

== ENCOUNTER → 2021-04-10 | Outpatient (CLI) | payer OTHER ==
[~2021-04-10] VITALS: Ht 160 cm; Wt 77.5 kg
[~2021-04-10] MED LIST changes: +ACYCLOVIR 800800 MG PO; +DILAUDID2 MG PO; +GLIPIZIDE 10 MG10 MG PO; +HUMALOG100 UNIT/1 SUBQ; +IPRATROPIUM BRO30 ML NASAL; +JANUVIA50 MG PO; +LEVOTHYROXINE112 MC1 PO; +NYSTATIN100000 UNI SW&SWALLOW; +PRAVACHOL40 MG PO; +SPIRONOLACTONE25 MG PO; +ZOVIRAX5 GM TOP
[2021-04-10 10:38] VITALS: BP 164/63
--- NOTE | 2021-04-10 10:50 | NUR ---
Pain Clinic Assessment: 1. History of Osteoarthritis: Left Lower Extremity Right Lower Extremity History of Rheumatoid Arthritis: Not Applicable 2. Height: 5 ft. 3 in. 160.0 cm. Weight: 170.8 lb. oz. 77.474 kg. Patient's BMI: 30.3 3. Vital Signs: BP: 164/63 Pulse: 62 Resp: 20 Temp: 02 Sat: 100 ECG Mon: 4. Pain Intensity: 10 5. Fall Risk: Dizziness: N Needs help standing or walking: N Fallen in the last 3 months: N Fall risk comments: 6. Patient on Blood Thinner: xarelto 7. History of Hypertension: Y 8. Opioid Therapy greater than 6 weeks: Y Opiate Contract Signed: 9. Risk Assessment Tool Provided: LOW RISK 0/3 10. Functional Assessment Tool: 11. Recreational Drug Use: Never Drug Type: Tobacco Use: Never Smoker Tobacco Type: Amount or Packs/day: How Many Years: Alcohol Use: No Frequency: Quant:
--- NOTE | 2021-04-11 08:04 | HPC ---
[facility] [place] [address] PAIN MANAGEMENT CONSULTATION Name: PAKO BALL Room #: REG YANELI RosenLaura#: [id number] Admission: 04/10/21 Attend Phys: Yobany Dennis DO Discharge: Date of : 41 Report #: [id number] THIS REPORT FOR: cc: Harrison Lomeli MD, Eric K. MD Johnson, James E. DO ~ DATE OF SERVICE: 04/10/2021 REFERRING PHYSICIAN: Nurse Practitioner, Ciara Sawant. CHIEF COMPLAINT: Low back pain, bilateral lower extremity pain. HISTORY OF PRESENT ILLNESS: As you know, the patient is a 75-year-old female who reports longstanding history of low back pain, bilateral lower extremity pain with radiation to the anterior thighs. She indicates pain has progressively worsened. She has undergone surgery to address L4-L5 radicular symptoms with improvement in pain for a short period of time, unfortunately her symptoms began to return. She has trialled conservative treatment including medication management, physical therapy and stretching exercises without benefit. She states that despite these in different treatments, her symptoms progressed. She ultimately sought evaluation again through Neurosurgery who sent the patient on for imaging, which shows changes at the L2-L3 level consistent with central canal stenosis. The stenosis patient is experiencing appears to be the radiation of symptoms of the patient's pain. She was referred to our clinic to discuss interventional treatment options to address this issue. The patient reports today her pain is continuous and steady, describes the pain as shooting, cramping, pounding and sharp. She places pain score today at 10/10, worst pain has been is 10/10. She states that all treatment options rendered to date. We were only transient effective and this excluding medications. She has undergone intraarticular hip injections as there was some concern that her pain may be related to the hip, which provided no benefit. She was referred to our clinic to discuss the possibility of undergoing a lumbar epidural injection to address the L2-L3 central canal stenosis. PAST MEDICAL HISTORY: 1. Asthma. 2. Hypothyroidism. 3. Seasonal allergies. 4. Chronic back pain. 5. Kidney disease. 6. Coronary artery disease requiring chronic anticoagulation. 7. Degenerative joint disease. 8. Diabetes mellitus type 2. PAST SURGICAL HISTORY: See chart. [facility] [address] [place] [address] PAIN MANAGEMENT CONSULTATION Name: PAKO BALL Room #: REG [facility]#: [id number] Admission: 04/10/21 Attend Phys: Yobany Dennis DO Discharge: Date of : 41 Report #: [id number] SOCIAL HISTORY: The patient reports herself as a nonsmoker. Denies IV or illicit drug use. Denies any chronic alcohol use. She is unaccompanied at today's visit. REVIEW OF SYSTEMS: Positive for low back pain, bilateral lower extremity pain, heat or cold intolerance, generalized osteoarthritis, hypertension, thyroid disease, peptic ulcer disease, Graves' disease. All other review of systems negative per 12-point review of systems other than those listed in the history of present illness. ALLERGIES: AMOXICILLIN, CEPHALEXIN, DEMEROL, FENTANYL, GABAPENTIN, MEPERIDINE, MORPHINE, PROAIR, SULFA, TETRACYCLINE. CURRENT MEDICATIONS: Oxybutynin 5 mg once a day, guaifenesin 600 mg every 12 hours, ferrous sulfate 325 mg per day, calcium phosphate 1 tablet per day, calcitonin 3.7 mg per day, Pulmicort 0.5 mg inhaled twice a day, biotin 10 mg per day, levothyroxine 112 mcg per day, Voltaren gel applied topically 3 times a day, montelukast sodium 10 mg per day, pregabalin 75 mg p.o. at bedtime, albuterol q.4 hours p.r.n., tramadol 50 mg every 6 hours p.r.n. pain, ascorbic acid 500 mg per day, hydrocodone 5/325 one tablet every 4 hours p.r.n. for pain, estradiol 4 mg per day, docusate sodium 100 mg per day, Dexilant 60 mg per day, ergocalciferol 50,000 units once a day, torsemide 10 mg per day, flecainide 50 mg twice a day, Januvia 100 mg once a day, Xarelto 15 mg once a day, fluticasone 2 sprays each nostril per day, diltiazem ER 240 mg once a day, valacyclovir 500 mg once a day, Tylenol Extra Strength 650 mg 3 times a day. IMAGING STUDIES: MRI lumbar spine obtained on 12/16/2020 shows L1-L2 unremarkable. L2-L3 shows retrolisthesis, diffuse disk bulge, prominent facet spurring, ligamentum flavum hypertrophy with ligamentum flavum measuring 5 mm, triangular canal is noted with canal measuring only 6.8 mm, severe left foraminal encroachment and mild right. L3-L4 shows slight anterolisthesis, diffuse disk bulge, moderate bilateral facet degenerative changes, central canal is well maintained, mild to moderate foraminal encroachment. L4-L5 shows diffuse disk bulge anterolisthesis central canal is maintained. Postoperative changes and laminectomy noted. Moderate left and severe right foraminal encroachment. There is prominent facet spurring and degenerative changes. L5-S1 unremarkable. PQRS: The patient has known arthritic changes of the lumbar spine, bilateral hips, bilateral knees. No rheumatoid arthritis. She is placing pain score today 10/10. She is not a fall risk, has not had a fall in last 3 months. She is on blood thinners in the form of Xarelto and is continue the medication until today. She is treated for hypertension and she is on chronic opioids, has a low opiate addiction potential based on our assessment tool, pain impact is 60/70, severe near complete interference of daily activities secondary to pain. [facility] [address] [place] [address] PAIN MANAGEMENT CONSULTATION Name: PAKO BALL Room #: REG [facility].#: [id number] Admission: 04/10/21 Attend Phys: Yobany Dennis DO Discharge: Date of : 41 Report #: [id number] PHYSICAL EXAMINATION: VITAL SIGNS: Blood pressure 164/63, pulse 62, respiratory rate 20 and unlabored. The patient 100% on room air. Height 5 feet 3 inches tall, weight 170.8 pounds, BMI calculated 30.3. GENERAL: Well-developed, well-nourished, well-hydrated 75-year-old female appearing stated age, placing current pain score 10/10. HEENT: Normocephalic and atraumatic. Pupils are equal, round and responsive. The patient is deemed a good historian. LUNGS: Appear clear. No wheeze, rhonchi, no rales. CARDIOVASCULAR: Regular. No appreciable gallop, no rub. ABDOMEN: Soft, nontender, nondistended. Normoactive bowel sounds. EXTREMITIES: Show no clubbing, no cyanosis. No appreciable edema. MUSCULOSKELETAL: Lower extremity strength equal and symmetrical 5/5 intact to light touch from L1 through S2 dermatomes. Seated straight leg raising negative. Supine straight leg raising negative. Fabere's test is negative. Modified Gaenslen's positive for axial low back pain. Ankle clonus negative. Babinski is negative. Gait appears normal. ASSESSMENT: 1. Lumbar radiculopathy. 2. Ntfbbevm-cn-ajfxha central canal stenosis. 3. Nhlsbkiv-ic-eyyufn neural foraminal stenosis of lumbar spine. 4. Degeneration of lumbar spine. 5. Facet arthropathy, lumbar spine. 6. Chronic intractable pain. PLAN: 1. Based on today's physical exam and history the patient has provided, the description the patient uses in regard to pain as well as location of symptoms, it would appear she is suffering from lumbar radiculopathy. The patient was seen by Neurosurgery and advised that surgical options would not be recommended at this time that she should trial epidural injections to address her central canal stenosis. She is experiencing minimal axial back pain and thus facets do not appear to be compromising the patient in anyway. We discussed with the patient the treatment options, we have to address lumbar radiculopathy following was discussed with the patient today. 2. We discussed physical therapy, stretching exercises and core strengthening as a treatment approach. We discussed medication management with suggestions of treatment to include amitriptyline, nortriptyline, Cymbalta, Lyrica, gabapentin. We discussed lumbar epidural injections under fluoroscopic guidance for which the patient was referred to our clinic. We also discussed spinal cord stimulator therapy and ultimately surgical decompression at the L2-L3 level. After reviewing the risks and benefits of all proposed treatment options, the patient chose to begin with a lumbar epidural injection under fluoroscopic guidance. 3. The patient was advised she will need to discontinue her Xarelto. She will [address] [address] PAIN MANAGEMENT CONSULTATION Name: PAKO BALL Room #: REG YANELI Mayen#: [id number] Admission: 04/10/21 Attend Phys: Yobany Dennis DO Discharge: Date of : 41 Report #: [id number] ask to be off that medication for 3 days prior to undergoing a lumbar epidural injection. We will schedule the patient back to our clinic in a timely fashion, so that she can come off the Xarelto in preparation for that procedure. We will keep you apprised of the date that the procedure will be performed once the patient has clearance from her senior benefits specialist to come off her Xarelto. 4. No medication changes made at today's visit. The patient will continue current medical therapy as prior prescribed. 5. I plan to see the patient back in followup visit once she has completed the process of coming off the Xarelto for 3 days to undergo a lumbar epidural injection. I am hopeful the patient can come off the Xarelto quickly and we can have her return within the next couple of days to undergo the first in a series of requested lumbar epidural injections. 6. We wish to thank nurse practitioner, Ciara Sawant for the opportunity to see this patient in consultation. We will keep you apprised of response to treatment as we address lumbar radicular symptoms. Again, we wish to thank you for the opportunity to see the patient in consultation. <ELECTRONICALLY SIGNED> By: Yobany Dennis DO 04/11/21 [id number] [id number] Yobany Dennis DO /nt
== END ==
LOC: PAIN 07:53
PROVIDERS: ATTEND Anesthesiology Pain Medicine
DX: M54.16 Radiculopathy, lumbar region (principal); M48.061 Spinal stenosis, lumbar region without neurogenic claudication; M51.36 Other intervertebral disc degeneration, lumbar region; G89.4 Chronic pain syndrome; Z79.891 Long term (current) use of opiate analgesic; Z79.899 Other long term (current) drug therapy

== ENCOUNTER → 2021-04-13 | Outpatient (CLI) | payer OTHER ==
[~2021-04-13] VITALS: Ht 160 cm; Wt 77.1 kg
--- NOTE | ~2021-04-13 | HPC ---
[address] [place] [address] PAIN MANAGEMENT CONSULTATION Name: PAKO BALL Room #: REG YANELI Rosen.#: [id number] Admission: 04/13/21 Attend Phys: Yobany Dennis DO Discharge: Date of : 41 Report #: [id number] THIS REPORT FOR: cc: Harrison Lomeli MD, Eric K. MD Johnson, James E. DO ~ cc: Yanni Sawant NP, Harrison Lomeli MD, Ruben Odell MD DATE OF SERVICE: 04/13/2021 CHIEF COMPLAINT: Low back pain, bilateral lower extremity pain. HISTORY OF PRESENT ILLNESS: As you know, the patient is a 75-year-old female with longstanding history of low back pain, bilateral lower extremity pain with radiation to the anterior thighs. She was seen in consultation per the request of nurse practitioner, Yanni Sawant, on 04/10/2021 to discuss interventional treatment options including epidural injections. We saw the patient, advised her of her treatment options including physical therapy suggestions and medication management and surgical options as well as the requested lumbar epidural injection. She chose to undergo the injection. She returns today to undergo this procedure as she has discontinued her Xarelto. The patient is placing current pain score at 10/10. She has suffered no new injury, no new trauma. No changes in medication management except for the discontinuation of Xarelto since our last visit. ALLERGIES: AMOXICILLIN, CEPHALEXIN, DEMEROL, FENTANYL, GABAPENTIN, MEPERIDINE, MORPHINE, PROAIR, SULFA, TETRACYCLINE. CURRENT MEDICATIONS: See extensive list in chart. SOCIAL HISTORY: The patient reports herself a nonsmoker. Denies IV or illicit drug use. Denies any chronic alcohol use. Unaccompanied today. IMAGING: No new imaging available. PQRS: The patient has known arthritic changes of lumbar spine, bilateral hips and knees. No rheumatoid arthritis, placing pain today at 10/10. She is not a fall risk, has not had a fall in last 3 months. She is on blood thinners in the form of Xarelto, but discontinued the medication 3 days ago in preparation for today's procedure. She is treated for hypertension. She is on chronic opioids. She has a low risk for opioid addiction based on our assessment tool. Pain impact is 60 of 70, severe, near complete interference of daily activities secondary to pain. PHYSICAL EXAMINATION: VITAL SIGNS: Blood pressure 143/60, pulse 60, respiratory rate 20, unlabored. The patient 98% on room air. Height 5 feet 3 inches tall, weight 170 pounds, [place] [address] PAIN MANAGEMENT CONS[facility]ATION [facility] #: REG [facility] Faheem#: [id number] Admission: 04/13/21 Attend Phys: Yobany Dennis DO Discharge: Date of : 41 Report #: [id number] BMI calculated 30.1. GENERAL: Well-developed, well-nourished, well-hydrated 75-year-old female, appearing stated age, pain is rated today 10/10. HEENT: normocephalic, atraumatic. Pupils are round and equal. She is wearing a mask in compliance with COVID-19 regulations. EXTREMITIES: Show no clubbing, no cyanosis, no edema. MUSCULOSKELETAL: Lower extremity strength is symmetrical 5/5 intact to light touch from L1 through S2 dermatomes. Seated straight leg raising and supine straight leg raising both negative. Fabere's test negative. Gait is normal. ASSESSMENT: 1. Symptomatic lumbar radiculopathy. 2. Moderate to severe central canal stenosis of the lumbar spine. 3. Atmpyike-hy-inudox neural foraminal stenosis of lumbar spine. 4. Degeneration of lumbar spine. 5. Facet arthropathy of lumbar spine. 6. Chronic intractable pain. PLAN: 1. The patient returns today in followup visit to undergo lumbar epidural injection under fluoroscopic guidance. She has discontinued her Xarelto in preparation for today's procedure. She has been advised risks and benefits of the procedure. These risks include but are not necessarily limited to bleeding, bruising, infection, worsening pain, no relief of pain, also risk of temporary or permanent muscle weakness, temporary or permanent nerve damage, possible paralysis, and . The patient states understood and wished to proceed. 2. No medication changes made at today's visit. The patient will restart Xarelto today and continue the Xarelto until our next appointment. 3. We will see the patient back in followup visit on an as needed basis. We are hopeful the patient will see good and prolonged benefit with the epidural injection provided today. We will see her back in followup visit on an as needed basis. DESCRIPTION OF PROCEDURE: L3-L4 interlaminar epidural steroid injection under fluoroscopic guidance. This is the first procedure of the first series that the patient is undergoing. After obtaining written consent, the patient was taken back to the fluoroscopy suite, placed in a prone position with pillow under the abdomen to decrease lumbar lordosis. The skin overlying the lumbosacral area was then prepped and draped in aseptic fashion. The L3-L4 vertebral interspace was then identified by AP fluoroscopy. The skin and subcutaneous tissue overlying the target site of injection was anesthetized with 3 mL 1% lidocaine. A 20-gauge 3-1/2 inch Tuohy needle was then advanced under fluoroscopic guidance [facility] [address] [place] [address] PAIN MANAGEMENT CONSULTATION Name: LAURENT BALLMARY Room #: REG YANELI Mayen#: [id number] Admission: 04/13/21 Attend Phys: Yobany Dennis DO Discharge: Date of : 41 Report #: [id number] towards the epidural space using a midline approach. The epidural space was identified using loss of resistance to air technique. After negative aspiration for heme or cerebrospinal fluid, a total of 1 mL of Omnipaque was injected. A lumbar epidurogram was confirmed using both AP and lateral fluoroscopy. After negative aspiration for heme or cerebrospinal fluid, 5 mL of a solution containing 2 mL 40 mg per mL 80 mg total triamcinolone was injected in increments. Contrast spread was noted in posterior epidural space. The needle was then retracted approximately half way and needle tract flushed with 1 mL of 1% lidocaine. Needle was then removed. There were no apparent sensory or motor deficits in the lower extremity following the procedure. A sterile bandage was placed over the injection site. The heart rate, pulse, oximetry and blood pressure were continuously monitored after the procedure. There were no apparent complications. The patient tolerated the procedure well and was carefully escorted to the recovery room in stable condition. There were no apparent complications. After meeting discharge criteria, the patient was then discharged home. By: [id number] Yobany Dennis DO /nt
[2021-04-13 12:58] VITALS: BP 143/60
--- NOTE | 2021-04-13 13:04 | NUR ---
Pain Clinic Assessment: 1. History of Osteoarthritis: Left Lower Extremity Right Lower Extremity History of Rheumatoid Arthritis: Not Applicable 2. Height: 5 ft. 3 in. 160.0 cm. Weight: 170.0 lb. oz. 77.112 kg. Patient's BMI: 30.1 3. Vital Signs: BP: 143/60 Pulse: 60 Resp: 20 Temp: 02 Sat: 98 ECG Mon: 4. Pain Intensity: 10 5. Fall Risk: Dizziness: N Needs help standing or walking: N Fallen in the last 3 months: N Fall risk comments: 6. Patient on Blood Thinner: xarelto 7. History of Hypertension: Y 8. Opioid Therapy greater than 6 weeks: Y Opiate Contract Signed: 9. Risk Assessment Tool Provided: LOW RISK 0/3 10. Functional Assessment Tool: 11. Recreational Drug Use: Never Drug Type: Tobacco Use: Never Smoker Tobacco Type: Amount or Packs/day: How Many Years: Alcohol Use: No Frequency: Quant:
== END | disposition home or self-care (01) ==
LOC: PAIN 07:35
PROVIDERS: ATTEND Anesthesiology Pain Medicine
DX: M51.16 Intervertebral disc disorders with radiculopathy, lumbar region (principal); M48.061 Spinal stenosis, lumbar region without neurogenic claudication; M47.26 Other spondylosis with radiculopathy, lumbar region; G89.29 Other chronic pain; I10 Essential (primary) hypertension; M19.90 Unspecified osteoarthritis, unspecified site; Z98.890 Other specified postprocedural states; Z79.899 Other long term (current) drug therapy; Z88.0 Allergy status to penicillin; Z88.8 Allergy status to other drugs, medicaments and biological substances

== ENCOUNTER → 2021-07-03 | Outpatient (CLI) | payer OTHER ==
[~2021-07-03] VITALS: Ht 160 cm; Wt 79.4 kg
[~2021-07-03] MED LIST changes: +CARDIZEM LA240 M1 PO
[2021-07-03 10:18] VITALS: BP 143/69
--- NOTE | 2021-07-03 11:12 | NUR ---
Pain Clinic Assessment: 1. History of Osteoarthritis: Left Lower Extremity Right Lower Extremity History of Rheumatoid Arthritis: Not Applicable 2. Height: 5 ft. 3 in. 160.0 cm. Weight: 175.0 lb. oz. 79.380 kg. Patient's BMI: 31.0 3. Vital Signs: BP: 143/69 Pulse: 64 Resp: 16 Temp: 02 Sat: 98 ECG Mon: 4. Pain Intensity: 10 5. Fall Risk: Dizziness: N Needs help standing or walking: N Fallen in the last 3 months: N Fall risk comments: 6. Patient on Blood Thinner: xarelto 7. History of Hypertension: Y 8. Opioid Therapy greater than 6 weeks: Y Opiate Contract Signed: 9. Risk Assessment Tool Provided: MOD-4 10. Functional Assessment Tool: 60/70 11. Recreational Drug Use: Never Drug Type: Tobacco Use: Never Smoker Tobacco Type: Amount or Packs/day: How Many Years: Alcohol Use: No Frequency: Quant:
--- NOTE | 2021-07-03 15:04 | HPC ---
[facility] [place] [address] PAIN MANAGEMENT CONSULTATION Name: PAKO BALL Room #: REG YANELI RosenLaura#: [id number] Admission: 07/03/21 Attend Phys: Yobany Dennis DO Discharge: Date of : 41 Report #: [id number] THIS REPORT FOR: cc: Harrison Lomeli MD, Eric K. MD Johnson, James E. DO ~ cc: Harrison Lomeli MD, Yanni Sawant DATE OF SERVICE: 07/03/2021 CHIEF COMPLAINT: Low back pain, bilateral lower extremity pain with paresthesias. HISTORY OF PRESENT ILLNESS: As you know, the patient is a very pleasant 75-year-old female with longstanding history of low back pain, bilateral lower extremity pain with radiation to the legs. She was seen in consultation per the request of nurse practitioner Yanni Sawant on 04/10/2021 to discuss interventional treatment options to address lumbar radiculopathy. She has undergone epidural injections under fluoroscopic guidance with a benefit of greater than prolonged 30%. She returns today requesting to undergo the second in the series of injections per the neurosurgery team's request. She is placing pain today at a level of up to 10/10. The patient reports pain is exacerbated with walking, standing, and any type of activity, improves with medication, repositioning. She describes the pain as more of a throbbing, aching, sore numbness and tingling. She returns today for the second in the series of lumbar epidural injections. She has been advised if these treatments do not provide benefit to return to see neurosurgery. ALLERGIES: AMOXICILLIN, CEPHALEXIN, DEMEROL, FENTANYL, GABAPENTIN, MEPERIDINE, MORPHINE, PROAIR, SULFA AND TETRACYCLINE. CURRENT MEDICATIONS: See chart. SOCIAL HISTORY: The patient reports herself a nonsmoker. Denies IV or illicit drug use. Denies any chronic alcohol use. She is unaccompanied at today's visit. IMAGING: No new imaging available. PQRS: The patient has known arthritic changes of lumbar spine, bilateral hips and knees. No rheumatoid arthritis. The patient is placing current pain score 10/10. She is not a fall risk, has not had a fall in last 3 months. She is on blood thinners in the form of Xarelto and discontinue the medication 3 days prior to today's procedure. She is treated for hypertension. She is placing pain intensity at a 10/10. She is on chronic opioids and has a moderate to severe opioid addiction potential based on our assessment tool. Pain impact is 60/70 near complete interference of daily activities secondary to pain. [address] [address] PAIN MANAGEMENT CONSULTATION Name: QUINNPAKO Room #: REG CL Faheem#: [id number] Admission: 07/03/21 Attend Phys: Yobany Dennis DO Discharge: Date of : 41 Report #: [id number] PHYSICAL EXAMINATION: VITAL SIGNS: Blood pressure 143/69, pulse is 64, respiratory rate 16 and unlabored. The patient 98% on room air. Height 5 feet 3 inches tall, weight 175 pounds, BMI calculated 31.0. GENERAL: Well-developed, well-nourished, well-hydrated 75-year-old female appearing stated age, pain is rated today 10/10. HEENT: Normocephalic, atraumatic. Pupils equal, round and responsive. She is wearing a mask in compliance with COVID-19 regulations. EXTREMITIES: Show no clubbing, no cyanosis. No appreciable edema. MUSCULOSKELETAL: Well-healed surgical scar over the lumbar spine consistent with her previous fusion. Lower extremity strength equal and symmetrical 5/5 intact to light touch from L1 through S2 dermatomes. Seated straight leg raising negative. Supine straight leg raising negative. Antonina's test is negative. Gait normal. Lumbar provocation testing is met with increasing axial back pain in all planes of motion. ASSESSMENT: 1. Symptomatic lumbar radiculopathy. 2. 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 3. Moderate to severe neural foraminal stenosis of lumbar spine. 4. Degeneration of lumbar spine. 5. Facet arthropathy of lumbar spine. 6. Chronic intractable pain. PLAN: 1. The patient returns today in followup visit to undergo next in the series of lumbar epidural injections. She is now placing pain at 10/10. She is able to localize pain below the area of her fusion at today's visit. She has been requested to return to undergo a lumbar epidural injection. We have advised the patient of the risks and the benefits. She states she understood and wished to proceed. 2. No medication changes made at today's visit. We did discuss with the patient utilizing Tylenol for breakthrough pain. She is on hydromorphone and no further adjustments and opioids would be necessary. She can make adjustments in the Tylenol today and this might be beneficial. We advised the patient, no more than 3000 mg of Tylenol per day. 3. We will plan to see the patient back in followup visit on an as needed basis for the third in the series of lumbar epidural injections. We did provide the patient with information today about spinal cord stimulator technology and how it might be beneficial to help with pain. She will review this at her earliest convenience and discuss this with the neurosurgery team on a return visit. PROCEDURE NOTE DESCRIPTION OF PROCEDURE: L5-S1 interlaminar epidural steroid injection under [facility] [address] [place] [address] PAIN MANAGEMENT CONSULTATION Name: QUINNPAKO Room #: REG YANELI Mayen#: [id number] Admission: 07/03/21 Attend Phys: Yobany Dennis DO Discharge: Date of : 41 Report #: [id number] fluoroscopic guidance. After obtaining written consent, the patient was taken back to fluoroscopy suite, placed in prone position with pillow under abdomen to decrease lumbar lordosis. Skin overlying lumbosacral area prepped and draped in aseptic fashion. The L5-S1 vertebral interspace identified by AP fluoroscopy. Skin and subcutaneous tissue overlying target site injection anesthetized with 3 mL 1% lidocaine. A 20 gauge 3-1/2 inch Tuohy needle advanced under fluoroscopic guidance towards the epidural space using midline approach. The epidural space identified using loss of resistance to air technique. After negative aspiration for heme or cerebrospinal fluid, 1 mL of Omnipaque injected. Lumbar epidurogram was confirmed using both AP and lateral fluoroscopy. After negative aspiration for heme or cerebrospinal fluid, 5 mL of a solution containing 2 mL 40 mg per mL 80 mg total triamcinolone along with 3 mL of lidocaine 1% injected slowly. Needle retracted jail flushed with 1 mL of 1% lidocaine, then removed. Sterile bandage placed over injection site. No new motor deficits present in lower extremity following procedure. The patient tolerated the procedure well, carefully escorted to recovery room in stable condition. After meeting our discharge criteria, the patient discharged home. <ELECTRONICALLY SIGNED> By: Yobany Dennis DO 07/03/21 [id number] Yobany Dennis DO /nt
== END | disposition home or self-care (01) ==
LOC: PAIN 06:51
PROVIDERS: ATTEND Anesthesiology Pain Medicine
DX: M51.16 Intervertebral disc disorders with radiculopathy, lumbar region (principal); M47.26 Other spondylosis with radiculopathy, lumbar region; M48.061 Spinal stenosis, lumbar region without neurogenic claudication; G89.29 Other chronic pain; I10 Essential (primary) hypertension; M19.90 Unspecified osteoarthritis, unspecified site; I48.91 Unspecified atrial fibrillation; J45.909 Unspecified asthma, uncomplicated; Z98.890 Other specified postprocedural states; Z79.899 Other long term (current) drug therapy; Z88.2 Allergy status to sulfonamides; Z88.8 Allergy status to other drugs, medicaments and biological substances

== ENCOUNTER → 2021-08-22 | Outpatient (CLI) | payer OTHER | LOC: SJCVCIMAG 08:46 | PROVIDERS: ATTEND Internal Medicine Cardiovascular Disease | DX: I08.3 Combined rheumatic disorders of mitral, aortic and tricuspid valves (principal); I13.0 Hypertensive heart and chronic kidney disease with heart failure and stage 1 through stage 4 chronic kidney disease, or unspecified chronic kidney disease; N18.9 Chronic kidney disease, unspecified; I50.32 Chronic diastolic (congestive) heart failure; E05.00 Thyrotoxicosis with diffuse goiter without thyrotoxic crisis or storm; I48.0 Paroxysmal atrial fibrillation; I27.20 Pulmonary hypertension, unspecified; D64.9 Anemia, unspecified; J45.909 Unspecified asthma, uncomplicated; E03.9 Hypothyroidism, unspecified; M19.90 Unspecified osteoarthritis, unspecified site; I26.99 Other pulmonary embolism without acute cor pulmonale; Z79.4 Long term (current) use of insulin; Z79.899 Other long term (current) drug therapy; Z72.89 Other problems related to lifestyle; Z88.8 Allergy status to other drugs, medicaments and biological substances ==

== ENCOUNTER → 2021-09-19 | Outpatient (CLI) | payer OTHER | LOC: MRI 09-17 12:28 | PROVIDERS: ATTEND Nurse Practitioner Family | DX: M47.816 Spondylosis without myelopathy or radiculopathy, lumbar region (principal); M48.062 Spinal stenosis, lumbar region with neurogenic claudication; M51.26 Other intervertebral disc displacement, lumbar region ==